=== PATIENT | male | born 1990 | race Caucasian/White ===

== ENCOUNTER 2018-02-17 23:32 | Emergency (ER) | payer OTHER ==
[~2018-02-17] VITALS: Ht 185.4 cm; Wt 83.9 kg
[~2018-02-17 23:32] MED LIST: IBUPROFEN 800800 M1 PO; OSELB75 PO; PROAIR HFA8.5 GM INH; PROMETHAZINE V473 ML PO; ZPAK PO
[2018-02-17] MEDS ORDERED: TESSALON PERLE100 MG (23:43)
[2018-02-18 00:10] VITALS: BP 126/87
== END 2018-02-18 00:10 | disposition home or self-care (01) ==
LOC: M.ERS 23:32
DX: J11.1 Influenza due to unidentified influenza virus with other respiratory manifestations (principal); J20.9 Acute bronchitis, unspecified